=== PATIENT | male | born 1955 | race Asian ===

== ENCOUNTER 2018-12-24 07:28 | Emergency (ER) | payer OTHER ==
[2018-12-24] MEDS: ONDANSETRON 4 MG INJ IV (08:18)
[2018-12-24] MEDS: SOD CHLORIDE 0.9% 1,000 ML IV (08:18)
[2018-12-24] MEDS: FAMOTIDINE 20 MG INJ IV (08:18)
[2018-12-24 08:19] LABS: ADD MAN DIFF? NO
[2018-12-24 08:21] LABS: BASOPHILS % 0.5 % (0.0-2.0); EOSINOPHILS # 0.1 10^3/ul (0.0-0.5); EOSINOPHILS % 1.9 % (0.0-7.0); HEMATOCRIT 46.6 % (42.0-52.0); HEMOGLOBIN 14.6 g/dl (14.0-18.0); LYMPHOCYTES # 1.5 10^3/ul (0.8-2.9); LYMPHOCYTES % 25.6 % (15.0-51.0); MEAN CORPUSCULAR HGB CONC 31.3 g/dl (32.0-37.0); MEAN CORPUSCULAR VOLUME 83.1 fl (82.0-101.0); MEAN PLATELET VOLUME 10.1 fl (7.4-10.4); MONOCYTE # 0.3 10^3/ul (0.3-0.9); MONOCYTES % 5.9 % (0.0-11.0); NEUTROPHIL # 3.8 10^3/ul (1.6-7.5); NEUTROPHILS % 65.9 % (39.0-77.0); PLATELET COUNT 262 10^3/UL (140-415); RED BLOOD COUNT 5.61 10^6/ul (4.70-6.10); RED CELL DISTRIBUTION WIDTH 14.2 % (11.5-14.5)
[2018-12-24 08:21] LABS: WHITE BLOOD COUNT 5.7 10^3/ul (4.8-10.8)
[2018-12-24 08:40] LABS: ALANINE AMINOTRANSFERASE 26 IU/L (13-69); ALBUMIN 4.5 g/dl (3.3-4.9); ALKALINE PHOSPHATASE 51 IU/L (42-121); AMYLASE 172 U/L (11-123); ANION GAP 9 (5-13); ASPARTATE AMINO TRANSFERASE 25 IU/L (15-46); BILIRUBIN,INDIRECT 0.9 mg/dl (0-1.1); BILIRUBIN,TOTAL 0.9 mg/dl (0.2-1.3); BLOOD UREA NITROGEN 13 mg/dl (7-20); CALCIUM 9.6 mg/dl (8.4-10.2); CARBON DIOXIDE 32 mmol/L (21-31); CHLORIDE 102 mmol/L (97-110); CREATININE 0.87 mg/dl (0.61-1.24); Estimated GFR > 60 mL/min (>60); GLUCOSE 130 mg/dl (70-220); LIPASE 78 U/L (23-300); POTASSIUM 3.6 mmol/L (3.5-5.1); SODIUM 143 mmol/L (135-144); TOTAL PROTEIN 8.5 g/dl (6.1-8.1)
[2018-12-24 08:41] LABS: ALBUMIN/GLOBULIN RATIO 1.12; INR 0.92; PROTIME 12.5 Sec (11.9-14.9)
[2018-12-24 08:42] LABS: PARTIAL THROMBOPLASTIN TIME 30.7 Sec (23.0-35.0)
[2018-12-24 08:52] LABS: TROPONIN-I < 0.012 ng/ml (0.000-0.120)
[2018-12-24] MEDS: SOD CHLORIDE 0.9% 100 ML (09:21)
[2018-12-24] MEDS: IOHEXOL 300MG/ML 150 ML BTL (09:21)
[2018-12-24] MEDS: LIDOCAINE/MYLANTA 40 ML BTL PO (09:35)
[2018-12-24] MEDS: BELLADONNA/PHENOBARBITAL TAB PO (09:35)
== END 2018-12-24 10:15 | disposition home or self-care (01) ==
LOC: E/R 07:28
DX: R10.13 Epigastric pain (principal); E11.9 Type 2 diabetes mellitus without complications; R11.0 Nausea; Z79.84 Long term (current) use of oral hypoglycemic drugs; Z87.891 Personal history of nicotine dependence
CPT/HCPCS: 36415; 71045; 74177; 80053; 82150; 83690; 84484; 85025; 85610; 85730; 93005; 96361; 96374; 96375; 99285-25

== ENCOUNTER 2019-02-01 08:30 | Day surgery (SDC) | payer OTHER ==
[2019-02-01] MEDS ORDERED: PROPOFOL 20 ML (10:56)
[2019-02-01] MEDS ORDERED: PROPOFOL 40 ML (10:56)
[2019-02-01] MEDS ORDERED: ESMOLOL 0 ML (13:14)
== END 2019-02-01 14:25 | disposition home or self-care (01) ==
LOC: GIL 08:30
DX: Z12.11 Encounter for screening for malignant neoplasm of colon (principal); K29.50 Unspecified chronic gastritis without bleeding; E11.9 Type 2 diabetes mellitus without complications; K26.9 Duodenal ulcer, unspecified as acute or chronic, without hemorrhage or perforation; K64.4 Residual hemorrhoidal skin tags; K57.30 Diverticulosis of large intestine without perforation or abscess without bleeding; D12.3 Benign neoplasm of transverse colon
CPT/HCPCS: 43239; 82962; 88305; 88312